=== PATIENT | male | born 1975 | race African-American/Black ===

== ENCOUNTER 2016-12-15 13:01 | Emergency (ER) | payer MEDICAID ==
[~2016-12-15] VITALS: Ht 162.6 cm; Wt 80.0 kg
[~2016-12-15 13:01] MED LIST: CARB200T PO; DIVA500T3 PO; HYDR-523 PO; KEPP500 PO
[2016-12-15] MEDS ORDERED: KETOROLAC 60MG/2ML VIAL IM ONE (18:30)
[2016-12-15 20:21] VITALS: BP 120/63
== END 2016-12-15 20:23 | disposition home or self-care (01) ==
LOC: ER 13:01
DX: M25.511 Pain in right shoulder (principal); M54.9 Dorsalgia, unspecified; G40.909 Epilepsy, unspecified, not intractable, without status epilepticus; F17.210 Nicotine dependence, cigarettes, uncomplicated; F12.10 Cannabis abuse, uncomplicated; V43.92XA Unspecified car occupant injured in collision with other type car in traffic accident, initial encounter; Y93.89 Activity, other specified; Y92.488 Other paved roadways as the place of occurrence of the external cause
CPT/HCPCS: 72040; 73030; 96372; 99284; J1885

== ENCOUNTER 2017-06-25 11:44 | Emergency (ER) | payer MEDICAID ==
[~2017-06-25] VITALS: Ht 175.3 cm; Wt 91.0 kg
[2017-06-25 15:14] VITALS: BP 107/63
== END 2017-06-25 16:40 | disposition home or self-care (01) ==
LOC: ER 13:02
DX: R56.9 Unspecified convulsions (principal); F12.10 Cannabis abuse, uncomplicated; Z98.890 Other specified postprocedural states
CPT/HCPCS: 99283